=== PATIENT | female | born 2005 | race Caucasian/White ===

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

== ENCOUNTER 2024-01-25 14:26 | Outpatient (CLI) | payer SELFPAY ==
[2024-01-25 18:24] LABS: Alanine Aminotransferase 23 U/L (12-78); Albumin Level 4.2 g/dl (3.5-5.0); Albumin/Globulin Ratio 2.2 (1.1-1.8); Aspartate Amino Transferase 27 U/L (14-36); Bilirubin,Total 0.4 mg/dl (0.2-1.3); Blood Urea Nitrogen 13 mg/dl (7-17); Globulin 1.9 g/dL (1.3-3.2); Total Protein,Serum 6.1 g/dl (6.3-8.2)
[2024-01-25 18:35] LABS: Alkaline Phosphatase 31 U/L (38-126); Carbon Dioxide 24 mmol/L (22.0-30.0); Chloride 107 mmol/L (98-107); Estimated Glomerular Filt Rate 157 ml/min (>60); GFR (African American) 190 ML/MIN (>60); Glucose 90 mg/dl (74-100); Sodium 140 mmol/L (136-145)
== END 2024-01-25 23:59 | disposition home or self-care (01) ==
LOC: LAB.DROPOF 01-28 14:27
PROVIDERS: PCP Internal Medicine; Visit Provider Internal Medicine
DX: R79.89 Other specified abnormal findings of blood chemistry (principal)
CPT/HCPCS: 80053

== ENCOUNTER 2024-03-16 15:42 | Emergency (ER) | payer SELFPAY ==
[2024-03-16 16:59] VITALS: BP 114/64; PULSE 77; RESP 18; TEMP 36.8; O2SAT 96; BMI 20.4
--- NOTE | 2024-03-16 17:05 | EXP.UTC ---
Discharge Plan Disposition Patient Disposition: Home, Self-Care Condition: Good Prescriptions Prescriptions: New nystatin 100,000 unit/gram cream 1 applic topical BID 7 Days Qty: 30 2RF nystatin 100,000 unit/gram powder 1 applic topical DAILY 7 Days Qty: 15 2RF cephalexin 500 mg capsule 500 mg PO QID 10 Days Qty: 40 0RF No Action methylprednisolone [Medrol (Karsten)] 4 mg tablets,dose pack See Rx Instructions PO PER PKG DIR Qty: 21 0RF Rx Instructions: PO PER PKG DIR for 6 days Referrals Follow up/Referrals: Provider,Referral, MD [Primary Care Provider] - See instructions Activity Restrictions/Add. Instructions Additional Instructions/Restrictions: Drink plenty of fluids. Take tylenol or ibuprofen for pain. Take the medications as directed. Use the topical medications as directed. Follow up with your regular doctor. GO TO THE ER FOR ANY WORSENING SYMPTOMS We took a culture of the wound. This test will take 3 days to finish. Please follow up to go over these results. Clinical Impressions Clinical Impression: Candidiasis of skin, Impetigo Instructions Patient Instructions: Cephalexin, Nystatin Topical Print Language Print Language: Korean Discharge ED Provider: Ricardo Mckinley [facility] HPI General Stated complaint: sores under both arms Mode of Arrival: Ambulatory Source of Information: Patient Time Seen by Provider: 03/16/24 17:05 Description of Symptoms (Recalled from Triage Doc. by RN): SORES UNDER ARMS HEENT Symptoms (Recalled from RN notes): No Resp Symptoms (Recalled from RN notes): No Skin Symptoms (Recalled from RN notes): Yes MS Symptoms (Recalled from RN notes): No Functional Status (Recalled from RN notes): WNL History of Present Illness Provider Complaint: She states that for the past 2 weeks she has had weeping sores on both her axillae. She has tried to treat it like yeast, but it has not improved with otc medications. Related Data Previous Rx's ?Medication ?Instructions ?Recorded methylprednisolone 4 mg tablets in See Rx Instructions PO PER PKG DIR 03/15/24 a dose pack (Medrol (Karsten)) #21 tabs cephalexin 500 mg capsule 500 mg PO QID 10 days #40 caps 03/16/24 nystatin 100,000 unit/gram topical 1 applic topical BID 7 days #30 03/16/24 cream grams nystatin 100,000 unit/gram topical 1 applic topical DAILY 7 days #15 03/16/24 powder grams Allergies Allergy/AdvReac Type Severity Reaction Status Date / Time Sulfa (Sulfonamide Allergy Mild Rash Verified 03/15/24 11:13 Antibiotics) Worker's Comp Is this a Worker's Comp case?: No [facility] Disclaimer: The information contained in this section may have been updated after the patient was seen, as this information can be updated by other users. Medical History Transaminitis with 38 completed weeks gestation Active labor Positive GBS test Anxiety in , antepartum Rh negative state in antepartum period Anxiety Surgical History Status post vaginal delivery No history of previous surgery Family History Other No significant family history Social History Smoking Status: Never smoker alcohol intake: never substance use type: denies use current occupational status: unemployed Travel in the last 8 weeks: None Have you lived/traveled outside US in past 30 days?: No Contact w/someone who lives/traveled outside US past 30 days?: No Exposure to someone with infectious disease in past 14 days?: No Do you have a fever (greater than 100.4 F or 38 C)?: No Have you tested positive for COVID-19: No Exposed to someone with COVID-19 in past 14 days?: No Do you have a sore throat?: No Do you have a cough?: No Do you have any weakness?: No Do you have any diarrhea?: No Are you experiencing any unusual bleeding?: No Do you have any muscle aches/pain?: No Do you have any abdominal pain?: No Are you experiencing loss of taste or smell?: No ROS Obtained: Yes All systems reviewed & no additional complaints except as documented Constitutional Constitutional: Denies chills and Denies fever(s) Eyes Eyes: Denies eye discharge ENT Ears, Nose, Mouth, and Throat: Denies dizziness, Denies otalgia and Denies sore throat Cardiovascular Cardiovascular: Denies chest pain Respiratory Respiratory: Denies shortness of breath, Denies chest congestion, Denies cough, Denies stridor and Denies wheezing Gastrointestinal Gastrointestingal: Denies nausea or vomiting Musculoskeletal Musculoskeletal: Reports system reviewed and no additional complaints, except as documented and Denies arthralgias Integumentary/Breasts Skin/Breast: Reports as per HPI and Reports rash Neurologic Neurologic: Denies dizziness and Denies paresthesias Allergic/Immunologic Allergic/Immunologic: Denies wheezing Physical Exam General General appearance: alert and in no apparent distress Head Head exam: atraumatic, normocephalic and normal inspection Eye Eye exam: Present normal appearance, PERRL and EOMI ENT ENT exam: Present normal exam, normal oropharynx, mucous membranes moist, TM's normal bilaterally and normal external ear exam Neck Neck exam: Present normal inspection, full ROM and trachea midline; Absent meningismus or lymphadenopathy Chest Chest inspection: Present normal inspection and symmetric chest wall rise; Absent tenderness Respiratory Respiratory exam: Present normal lung sounds bilaterally; Absent respiratory distress Cardiovascular Cardiovascular exam: Present regular rate and normal rhythm; Absent JVD Abdominal Exam Abdominal exam: Present soft and normal bowel sounds; Absent distention, tenderness or guarding Extremities Exam Extremities exam: Present normal inspection, full ROM and normal capillary refill; Absent calf tenderness Back Exam Back exam: Present normal inspection; Absent tenderness Neurological Exam Neurological exam: Present alert and oriented X3 Psychiatric Psychiatric exam: Present normal affect and normal mood Skin Skin exam: Present rash Lymphatic Lymphatic Findings: no adenopathy Medical Decision Making Medical Records Medical records reviewed: No I reviewed the patient's medical records. Screening: Per USPSTF and CDC recommendations, given the prevalence of disease in our region, it is our hospital?s policy to screen for HIV and viral Hepatitis for all patients aged 18 and over and those with ongoing risk factors. Ming Inquiry Pt receiving controlled substance: No Vital Signs: 03/16/24 16:59 Temperature 98.2 F Temperature Source Oral Pulse Rate [Left Brachial] 77 Respiratory Rate 18 Blood Pressure [Left Arm] 114/64 Blood Pressure Mean [Left Arm] 80 02 Sat by Pulse Oximetry 96
[2024-03-16 17:55] VITALS: BP 114/64; PULSE 77; RESP 18; TEMP 36.8
== END 2024-03-16 18:01 | disposition home or self-care (01) ==
PROVIDERS: Emergency Provider Nurse Practitioner Family
DX: B37.2 Candidiasis of skin and nail (principal); L01.00 Impetigo, unspecified; R21 Rash and other nonspecific skin eruption
CPT/HCPCS: 87070; 87077; 87186; 87205; 99212; G0381